=== PATIENT | female | born 1980 | race Caucasian/White ===

== ENCOUNTER 2017-02-25 11:41 | Emergency (ER) | payer OTHER ==
[~2017-02-25] VITALS: Ht 175.3 cm; Wt 68.0 kg
[2017-02-25 11:50] VITALS: BP 145/83
--- NOTE | 2017-02-25 12:21 | RAD ---
Examination: 3 views of the left foot History: History of fall Comparison: None available. Findings: There is medial displaced comminuted fracture of the distal shaft of the second metatarsal. There is nondisplaced fracture of the medial cortex of the midshaft of the third metatarsal. The alignment of the tarsometatarsal joints, metatarsophalangeal joints, interphalangeal joints grossly appears unremarkable. Impression: Medial displaced comminuted fracture of the distal shaft of the second metatarsal. There is nondisplaced fracture of the medial cortex of the midshaft of the third metatarsal.
--- NOTE | 2017-02-25 12:33 | PHYS DOC ---
Past Medical History Past Medical History: No Pertinent History Past Surgical History: Other Additional Past Surgical Histo: R ANKLE Alcohol Use: None Drug Use: None Adult General Chief Complaint Chief Complaint: FOOT INJURY PAIN HPI HPI Patient is a 36 year old female with no significant medical history who presents with left foot injury. Patient states she dropped a 2 x 4 on her left foot 2 days ago. Review of Systems Review of Systems Constitutional: Denies fever or chills [] Eyes: Denies change in visual acuity, redness, or eye pain [] Musculoskeletal: Left foot injury Integument: Denies rash or skin lesions [] Neurologic: Denies headache, focal weakness or sensory changes [] Endocrine: Denies polyuria or polydipsia [] Allergies Allergies Allergies Coded Allergies Type Severity Reaction Last Updated Verified Penicillins Allergy Intermediate 06/19/15 Yes Physical Exam Physical Exam Constitutional: Well developed, well nourished, no acute distress, non-toxic appearance. [] HENT: Normocephalic, atraumatic, bilateral external ears normal, oropharynx moist, no oral exudates, nose normal. [] Skin: Warm, dry, no erythema, no rash. [] Back: No tenderness, no CVA tenderness. [] Extremities: Left foot with +2 soft tissue swelling, there is bruising along the second metatarsal, there is also bruising and ecchymosis noted on the left second third and fourth phalanges. There is tenderness noted on palpation along the second to fourth metatarsals and phalanges. Full range of motion to the left foot and toes. +2 left pedal pulse. Cap refill less than 2 seconds and left lower extremity. Sensation intact to the left lower extremity. Neurologic: Alert and oriented X 3, normal motor function, normal sensory function, no focal deficits noted. [] Psychologic: Affect normal, judgement normal, mood normal. [] Current Patient Data Vital Signs Vital Signs Date Time Temp Pulse Resp B/P (MAP) Pulse Ox O2 Delivery O2 Flow Rate FiO2 02/25/17 11:50 98.1 83 18 99 Room Air 98.1 EKG EKG [] Radiology/Procedures Radiology/Procedures [] Course & Med Decision Making Course & Med Decision Making Pertinent Labs and Imaging studies reviewed. (See chart for details) Patient is in the ED with complaints of left foot pain after she accidentally dropped a 2 x 4 on the foot 2 days ago. Left foot x-rays interpreted by radiologist were noted for a displaced comminuted fracture of the medial shaft of the second metatarsal and a nondisplaced fracture of the medial cortex of the midshaft of the third metatarsal. Patient was provided an orthopedic shoe in the ED and instructed to be nonweightbearing to the left lower extremity, placed in a posterior leg splint by the freezer laboratory technician. Neurovascular exam done by me is normal. Cap refill less than 2 seconds. Ice elevation encouraged. She is to call the orthopedic doctor tomorrow and set up a follow-up appointment. Dragon Disclaimer Dragon Disclaimer This electronic medical record was generated, in whole or in part, using a voice recognition dictation system. Departure Departure Impression: Primary Impression: Fracture of second metatarsal bone of left foot Additional Impression: Fracture of third metatarsal bone Disposition: 01 HOME, SELF-CARE Condition: STABLE Referrals: HENRY KAT MD (PCP) NICCI LION MD Call the provided orthopedic doctor's office tomorrow and get a follow-up appointment Patient Instructions: Foot Fracture-Brief Additional Instructions: You were seen for left second and third metatarsal fractures. Do not bear weight in the left lower extremity. Call the orthopedic doctor provided tomorrow and set up a follow-up appointment. Ice and elevate the extremity. Take pain medicine as needed. Scripts Hydrocodone/Apap 5-325 (NORCO 5-325 TABLET) 1 Each Tablet 1-2 TAB PO Q4-6HRS, #30 TAB Prov: PATRICIASABIFABI FAUSTIN 02/25/17 Problem Qualifiers Primary Impression: Fracture of second metatarsal bone of left foot Encounter type: initial encounter Fracture type: closed Fracture alignment : displaced Qualified Codes: S92.322A - Displaced fracture of second metatarsal bone, left foot, initial encounter for closed fracture Additional Impression: Fracture of third metatarsal bone Encounter type: initial encounter Fracture type: closed Physeal involvement : not involving physis Laterality: left Qualified Codes: S92.332A - Displaced fracture of third metatarsal bone, left foot, initial encounter for closed fracture PATRICIASABIFABI APRN February 25, 2017 12:33
[2017-02-25] MEDS ORDERED: HYDR-971 PO (12:46)
== END 2017-02-25 12:59 | disposition home or self-care (01) ==
LOC: ER 12:34
DX: S92.322A Displaced fracture of second metatarsal bone, left foot, initial encounter for closed fracture (principal); S92.335A Nondisplaced fracture of third metatarsal bone, left foot, initial encounter for closed fracture; Z88.0 Allergy status to penicillin; W20.8XXA Other cause of strike by thrown, projected or falling object, initial encounter; Y93.89 Activity, other specified; Y92.89 Other specified places as the place of occurrence of the external cause; Y99.8 Other external cause status
CPT/HCPCS: 29515; 73630; 99284-25

== ENCOUNTER 2019-05-05 17:17 | Emergency (ER) | payer BC, OTHER ==
[~2019-05-05] VITALS: Ht 175.3 cm; Wt 68.0 kg
[~2019-05-05 17:17] MED LIST: HYDR-3164 PO
[2019-05-05 17:58] VITALS: BP 143/103
[2019-05-05] MEDS ORDERED: TRAM50TA PO (18:41)
[2019-05-05] MEDS ORDERED: PRED20TA PO (18:41)
[2019-05-05] MEDS ORDERED: ORPH100T PO (18:41)
[2019-05-05] MEDS ORDERED: GABA300C18 PO (18:41)
--- NOTE | 2019-05-05 18:41 | PHYS DOC ---
Past Medical History Past Medical History: No Pertinent History Past Surgical History: Other Additional Past Surgical Histo: R ANKLE Smoking: Quit Greater Than 1 Year Alcohol Use: None Drug Use: None Adult General Chief Complaint Chief Complaint: BACK PAIN OR INJURY [facility] HPI Patient is a 38 year old [f__sex] who presents with [] Review of Systems Review of Systems Constitutional: Denies fever or chills [] Eyes: Denies change in visual acuity, redness, or eye pain [] HENT: Denies nasal congestion or sore throat [] Respiratory: Denies cough or shortness of breath [] Cardiovascular: No additional information not addressed in HPI [] GI: Denies abdominal pain, nausea, vomiting, bloody stools or diarrhea [] : Denies dysuria or hematuria [] Musculoskeletal: Denies back pain or joint pain [] Integument: Denies rash or skin lesions [] Neurologic: Denies headache, focal weakness or sensory changes [] Endocrine: Denies polyuria or polydipsia [] All other systems were reviewed and found to be within normal limits, except as documented in this note. Allergies Allergies Allergies Coded Allergies Type Severity Reaction Last Updated Verified Penicillins Allergy Intermediate 06/19/15 Yes Physical Exam Physical Exam Constitutional: Well developed, well nourished, no acute distress, non-toxic appearance. [] HENT: Normocephalic, atraumatic, bilateral external ears normal, oropharynx moist, no oral exudates, nose normal. [] Eyes: PERRLA, EOMI, conjunctiva normal, no discharge. [] Neck: Normal range of motion, no tenderness, supple, no stridor. [] Cardiovascular:Heart rate regular rhythm, no murmur [] Lungs & Thorax: Bilateral breath sounds clear to auscultation [] Abdomen: Bowel sounds normal, soft, no tenderness, no masses, no pulsatile masses. [] Skin: Warm, dry, no erythema, no rash. [] Back: No tenderness, no CVA tenderness. [] Extremities: No tenderness, no cyanosis, no clubbing, ROM intact, no edema. [] Neurologic: Alert and oriented X 3, normal motor function, normal sensory function, no focal deficits noted. [] Psychologic: Affect normal, judgement normal, mood normal. [] Current Patient Data Vital Signs Vital Signs Date Time Temp Pulse Resp B/P (MAP) Pulse Ox O2 Delivery O2 Flow Rate FiO2 05/05/19 17:58 98.5 87 16 143/103 (116) 98 Room Air 98.5 EKG EKG [] Radiology/Procedures Radiology/Procedures [] Course & Med Decision Making Course & Med Decision Making Pertinent Labs and Imaging studies reviewed. (See chart for details) [] Dragon Disclaimer Dragon Disclaimer This electronic medical record was generated, in whole or in part, using a voice recognition dictation system. Departure Departure Impression: Primary Impression: Back pain Additional Impression: Sciatica Disposition: HOME, SELF-CARE Condition: STABLE Referrals: HENRY KAT MD (PCP) YONNY SPENCER MD, JOSHUA A MD Patient Instructions: Back Pain, Adult, [id number], Sciatica, [id number] Scripts Gabapentin (GABAPENTIN ) 300 Mg Capsule 300 MG PO TID for NEUROGENIC PAIN, #30 CAP Start with one tab today, Sunday05/05/19. Take one tab twice daily tomorrow, Sunday05/06/19 Increase to one tab three times daily going forward. Prov: OSIEL NAVRARO DO 05/05/19 Tramadol Hcl (TRAMADOL HCL) 50 Mg Tablet 50 MG PO Q6HRS PRN for PAIN, #14 TAB Prov: OSIEL NAVARRO DO 05/05/19 Orphenadrine Citrate (ORPHENADRINE CITRATE) 100 Mg Tablet.er 1 TAB PO BID PRN for MUSCLE PAIN, #14 TAB Prov: OSIEL NAVARRO DO 05/05/19 Prednisone (PREDNISONE) 20 Mg Tablet 2 TAB PO DAILY, #8 TAB Start this prescription tomorrow, Sunday05/06/19 Prov: OSIEL NAVARRO DO 05/05/19 Problem Qualifiers Primary Impression: Back pain Back pain location: low back pain Chronicity: acute Back pain laterality: right Sciatica presence: with sciatica Sciatica laterality: sciatica of right side Qualified Codes: M54.41 - Lumbago with sciatica, right side Additional Impression: Sciatica Laterality: right Qualified Codes: M54.31 - Sciatica, right side OSIEL NAVARRO DO May 05, 2019 18:41
[2019-05-05] MEDS ORDERED: KETOROLAC 30 MG/ML VIAL. IM ONE (18:45)
[2019-05-05] MEDS ORDERED: DEXAMETHASONE 4 MG TABLET PO ONE (18:45)
== END 2019-05-05 18:57 | disposition home or self-care (01) ==
LOC: ER 17:17
DX: M54.41 Lumbago with sciatica, right side (principal); Z87.891 Personal history of nicotine dependence; Z88.0 Allergy status to penicillin
CPT/HCPCS: 96372; 99283; J1885; J8540

== ENCOUNTER → 2020-05-28 | Outpatient (CLI) | payer BC ==
[~2020-05-28] MED LIST changes: +GABA300C18 PO; +ORPH100T PO; +PRED20TA PO; +TRAM50TA PO
--- NOTE | 2020-05-28 09:09 | KCIC ---
FOOT RIGHT 3V History: Right foot infection Comparison: None Findings: 3 views of the right foot are submitted. There is some soft tissue swelling lateral to the fifth metatarsophalangeal joint, no radiopaque foreign body in this region. No aggressive bone destruction or acute fracture is identified. There are 2 screws of the medial malleolus. There is small plantar calcaneal enthesophyte. Impression: 1. No aggressive bone destruction or acute fracture is identified. 2. There is nonspecific soft tissue swelling lateral to the fifth metatarsophalangeal joint. Electronically signed by: Jerome Michael MD (05/28/2020 9:06 AM) [id number]
== END | disposition home or self-care (01) ==
LOC: KCIC 07:49
PROVIDERS: ATTEND Nurse Practitioner Family
DX: M77.31 Calcaneal spur, right foot (principal); M25.474 Effusion, right foot; M79.89 Other specified soft tissue disorders; L08.89 Other specified local infections of the skin and subcutaneous tissue
CPT/HCPCS: 73630

== ENCOUNTER → 2021-08-03 | Outpatient (CLI) | payer BC ==
--- NOTE | 2021-08-03 11:55 | KCIC ---
Bilateral digital screening mammograms with 3-D tomosynthesis: Reason for examination: Routine screening. Comparison is made to previous study dated Bilateral mammograms in CC and oblique projections were obtained with 2-D imaging and 3-D tomosynthes is imaging on a Siemens Inspiration unit and reviewed on the workstation. Interpretation was made wit h the benefit of CAD. The skin and nipples show no abnormalities. No abnormal axillary lymph nodes are seen. The breast par enchyma is heterogeneously dense. (Breast density: Category C.) There are no dominant masses, suspici ous calcifications or architectural distortion. Impression: No evidence of malignancy. Recommend routine screening. Your patient's mammogram demonstrates that she has dense breast tissue (breast density category C or D), which could hide abnormalities, and if she has other risk factors for breast cancer that have bee n identified, she might benefit from supplemental screening tests that may be suggested by you as her ordering physician. Dense breast tissue, in and of itself, is a relatively common condition. Therefo re, this information is not provided to cause undue concern, but rather to raise your awareness and t o promote discussion with your patient regarding the presence of other risk factors, in addition to d ense breast tissue. Your patient's mammography results will be sent to her. BI-RAD Category 1: Negative. "Our facility is accredited by the [employer] Mammography [employer]." This patient's information has been entered into a reminder system for the patient to be notified wit h the results of her examination and a target date for the next mammogram. Electronically signed by: Komal Villegas MD (08/03/2021 11:53 AM) [id number]
--- NOTE | 2021-08-03 15:17 | KCIC ---
ADDENDUM ADDENDUM #1 Addendum: Correction to the mammographic report dated 08/03/2021. Routine baseline exam. The breast parenchyma is heterogeneously dense. There appear to be several small subcentimeter circumscribed nodules present bilaterally. Further evaluation with bilateral breast ultrasound is recommended. IMPRESSION: Several small circumscribed nodules bilaterally. These may represent cysts but recommend further evaluation with bilateral breast ultrasound. BI-RADS Category 0: Incomplete: Need additional imaging evaluation. "Our facility is accredited by the [employer] Mammography [employer]." Electronically signed by: Komal Brizuela MD (08/03/2021 12:05 PM) [email or web address] ORIGINAL REPORT Bilateral digital screening mammograms with 3-D tomosynthesis: Reason for examination: Routine screening. Comparison is made to previous study dated Bilateral mammograms in CC and oblique projections were obtained with 2-D imaging and 3-D tomosynthesis imaging on a Siemens Inspiration unit and reviewed on the workstation. Interpretation was made with the benefit of CAD. The skin and nipples show no abnormalities. No abnormal axillary lymph nodes are seen. The breast parenchyma is heterogeneously dense. (Breast density: Category C.) There are no dominant masses, suspicious calcifications or architectural distortion. Impression: No evidence of malignancy. Recommend routine screening. Your patient's mammogram demonstrates that she has dense breast tissue (breast density category C or D), which could hide abnormalities, and if she has other risk factors for breast cancer that have been identified, she might benefit from supplemental screening tests that may be suggested by you as her ordering physician. Dense breast tissue, in and of itself, is a relatively common condition. Therefore, this information is not provided to cause undue concern, but rather to raise your awareness and to promote discussion with your patient regarding the presence of other risk factors, in addition to dense breast tissue. Your patient's mammography results will be sent to her. BI-RAD Category 1: Negative. "Our facility is accredited by the [employer] Mammography [employer]." This patient's information has been entered into a reminder system for the patient to be notified with the results of her examination and a target date for the next mammogram. Electronically signed by: Komal Brizuela MD (08/03/2021 11:53 AM) [email or web address] DICTATED AND SIGNED BY: KOMAL BRIZUELA MD DATE: 08/03/21 1158 CC: HENRY KAT MD ~ Bilateral digital screening mammograms with 3-D tomosynthesis: Reason for examination: Routine screening. Comparison is made to previous study dated Bilateral mammograms in CC and oblique projections were obtained with 2-D imaging and 3-D tomosynthesis imaging on a Siemens Inspiration unit and reviewed on the workstation. Interpretation was made with the benefit of CAD. The skin and nipples show no abnormalities. No abnormal axillary lymph nodes are seen. The breast parenchyma is heterogeneously dense. (Breast density: Category C.) There are no dominant masses, suspicious calcifications or architectural distortion. Impression: No evidence of malignancy. Recommend routine screening. Your patient's mammogram demonstrates that she has dense breast tissue (breast density category C or D), which could hide abnormalities, and if she has other risk factors for breast cancer that have been identified, she might benefit from supplemental screening tests that may be suggested by you as her ordering physician. Dense breast tissue, in and of itself, is a relatively common condition. Therefore, this information is not provided to cause undue concern, but rather to raise your awareness and to promote discussion with your patient regarding the presence of other risk factors, in addition to dense breast tissue. Your patient's mammography results will be sent to her. BI-RAD Category 1: Negative. "Our facility is accredited by the [employer] Mammography Program." This patient's information has been entered into a reminder system for the patient to be notified with the results of her examination and a target date for the next mammogram. Electronically signed by: Komal Brizuela MD (08/03/2021 11:53 AM) [email or web address] MTDD
== END ==
LOC: KCIC MAMMO 09:08
PROVIDERS: ATTEND Family Medicine
DX: Z12.31 Encounter for screening mammogram for malignant neoplasm of breast (principal); N63.20 Unspecified lump in the left breast, unspecified quadrant; N63.10 Unspecified lump in the right breast, unspecified quadrant
CPT/HCPCS: 77063; 77067

== ENCOUNTER → 2021-08-16 | Outpatient (CLI) | payer BC ==
--- NOTE | 2021-08-16 18:31 | KCIC ---
Bilateral breast ultrasound, complete INDICATION: Multiple small bilateral masses seen on screening mammogram. COMPARISON: Mammogram from 08/03/2021. FINDINGS: All 4 quadrants retroareolar regions, and axilla were evaluated, bilaterally. Right: There is a 1.2 cm cyst in the 6:00 retroareolar region. There is a 0.6 cm oval circumscribed h ypoechoic mass in the 10:00 position, 8 cm from the nipple that is probably due to a complicated cyst . There is a 0.7 cm simple cyst in the 10:00 position, 4 cm from the nipple. No axillary adenopathy i s seen. Left: There is a 0.8 cm cyst in the 12:00 position, 6 cm from the nipple. There is a small group of c ysts in the 1:30 position, 5 cm from the nipple. There is a 0.7 cm cyst in the 3:00 position, 3 cm fr om the nipple. In the 5:00 position, 5 cm from the nipple, there are 2 small hypoechoic masses adjace nt to each other, the largest measures 0.8 cm in the other 0.7 cm. These may represent complicated cy sts or small fibroadenomas. There are multiple small cysts in the 6:00, 7:00, and 8:00 position. Ther e is a 1.1 cm area of focal fibrocystic change 10:00, 2 cm from the nipple. No axillary adenopathy is seen. IMPRESSION: There are multiple benign appearing masses in both breasts consistent with cysts complica nuvia cysts. Some could be due to fibroadenomas. No suspicious mass is seen. ASSESSMENT: BI-RADS 2. Benign findings. Recommendations: Routine screening mammogram in one year. Results are given to the patient at the time of the exam. This patient's information has been entered into a reminder system for the patient to be notified with the results of her examination and a targ et date for the next mammogram. Electronically signed by: Kayce Obando MD (08/16/2021 6:28 PM) [email or web address]
== END ==
LOC: KCIC US 12:42
PROVIDERS: ATTEND Family Medicine
DX: N63.11 Unspecified lump in the right breast, upper outer quadrant (principal); N63.23 Unspecified lump in the left breast, lower outer quadrant; N60.02 Solitary cyst of left breast; N60.01 Solitary cyst of right breast
CPT/HCPCS: 76641